=== PATIENT | female | born 1980 | race Caucasian/White ===

== ENCOUNTER 2016-09-17 18:59 | Emergency (ER) | payer OTHER ==
[~2016-09-17 18:59] MED LIST: METH750T2 PO; PRED20 PO; TRAM50 PO
[2016-09-17 19:02] VITALS: BP 178/78; PULSE 89; RESP 14; TEMP 98; O2SAT 98
--- NOTE | 2016-09-17 19:48 | PD ---
HPI Chief Complaint: Exposure to Blood/Body Fluids Time Seen by Provider: 19:20 Travel History International Travel<30 days: No Contact w/Intl Traveler<30days: No Traveled to known affect area: No History of Present Illness HPI 36-year-old female presents for evaluation after occupational exposure. 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 She was pulling the guidewire out of the source patient's recently placed dobhoff tube when the guidewire cut her on her right index finger at the DIP joint. There was some bleeding and it went through her gloves. She immediately washed the wound. She now presents for evaluation. Her last tetanus vaccination was approximately 3 years ago. She is up-to-date on her hepatitis B series. She was concerned because the source patient has tested positive for HIV. He was negative for hepatitis viral testing according to the patient. She has no other complaints. PFSH Past Medical History Diminished Hearing: No ?: Not LMP: 2 WKS AGO Menopausal: No : 2 Para: 1 Miscarriage: 1 Past Surgical History Section: Yes (07/18/13) Social History Alcohol Use: Yes Tobacco Use: No Substance Use: No Allergies-Medications (Allergen,Severity, Reaction): Coded Allergies: Amoxicillin (Verified Allergy, Mild, 11/07/13) Doxycycline (Verified Allergy, Mild, Hives, 11/07/13) Erythromycin (Verified Allergy, Mild, 11/07/13) Zithromax (Verified Allergy, Mild, Hives, 11/07/13) Reported Meds & Prescriptions Reported Meds & Active Scripts Active Zofran (Ondansetron HCl) 4 Mg Tab 4 Mg PO Q6HR PRN Kaletra (Lopinavir/Ritonavir) 200-50 Mg Tab 2 Tab PO Q12HR Fill this prescription for a 23 day supply of Kaletra ONLY if advised to do so by either Employee Health OR the Emergency Department. Zidovudine 100 Mg Cap 300 Mg PO Q12HR Lamivudine 150 Mg Tab 150 Mg PO BID Kaletra (Lopinavir/Ritonavir) 200-50 Mg Tab 2 Tab PO Q12HR Fill this 5 day prescription first & begin taking Kaletra 12 hours after the first dose received in the Emergency Department as prescribed. Zidovudine 100 Mg Cap 300 Mg PO Q12HR Lamivudine 150 Mg Tab 150 Mg PO BID Reported Omeprazole 20 Mg Tab 20 Mg PO DAILY Review of Systems General / Constitutional: Positive: Other (puncture wound exposure) Skin: Positive Other (puncture wound, bleeding, exposure) Physical Exam Narrative GENERAL: Well-developed well-nourished female in no acute distress SKIN: Warm and dry. Tiny nonbleeding puncture wound noted at the DIP joint of the right index finger. CARDIOVASCULAR: Regular rate and rhythm. No murmur appreciated. RESPIRATORY: No accessory muscle use. Clear to auscultation. Breath sounds equal bilaterally. Data Data Last Documented VS Vital Signs Date Time Temp Pulse Resp B/P Pulse Ox O2 Delivery O2 Flow Rate FiO2 09/17/16 20:03 16 09/17/16 19:02 98.0 89 178/78 98 Room Air Orders Complete Blood Count With Diff (09/17/16 19:50) Comprehensive Metabolic Panel (09/17/16 19:50) Amylase (09/17/16 19:50) Beta Hcg (Quant/Titer) (09/17/16 19:50) Lamivudine (Epivir) (09/17/16 20:15) Zidovudine (Retrovir) (09/17/16 20:15) Lopinavir-Ritonavir 200-50 Mg (Kaletra 2 (09/17/16 20:15) Ondansetron Odt (Zofran Odt) (09/17/16 20:15) Labs Laboratory Tests Test 09/17/16 19:45 White Blood Count 13.8 TH/MM3 Red Blood Count 4.24 MIL/MM3 Hemoglobin 13.6 GM/DL Hematocrit 38.7 % Mean Corpuscular Volume 91.2 FL Mean Corpuscular Hemoglobin 32.0 PG Mean Corpuscular Hemoglobin 35.1 % Concent Red Cell Distribution Width 12.9 % Platelet Count 279 TH/MM3 Mean Platelet Volume 7.5 FL Neutrophils (%) (Auto) 63.0 % Lymphocytes (%) (Auto) 29.5 % Monocytes (%) (Auto) 6.3 % Eosinophils (%) (Auto) 1.0 % Basophils (%) (Auto) 0.2 % Neutrophils # (Auto) 8.7 TH/MM3 Lymphocytes # (Auto) 4.1 TH/MM3 Monocytes # (Auto) 0.9 TH/MM3 Eosinophils # (Auto) 0.1 TH/MM3 Basophils # (Auto) 0.0 TH/MM3 CBC Comment DIFF FINAL Differential Comment Sodium Level 136 MEQ/L Potassium Level 4.2 MEQ/L Chloride Level 104 MEQ/L Carbon Dioxide Level 26.8 MEQ/L Anion Gap 5 MEQ/L Blood Urea Nitrogen 14 MG/DL Creatinine 0.90 MG/DL Estimat Glomerular Filtration 72 ML/MIN Rate Random Glucose 83 MG/DL Calcium Level 8.9 MG/DL Total Bilirubin 0.4 MG/DL Aspartate Amino Transf 17 U/L (AST/SGOT) Alanine Aminotransferase 34 U/L (ALT/SGPT) Alkaline Phosphatase 74 U/L Total Protein 7.6 GM/DL Albumin 3.9 GM/DL Amylase Level 31 U/L Human Chorionic Gonadotropin, LESS THAN 1 Quant MIU/ML MDM Medical Decision Making Medical Screen Exam Complete: Yes Emergency Medical Condition: Yes Medical Record Reviewed: Yes Differential Diagnosis Puncture wound, abrasion, laceration, HIV exposure Narrative Course 36-year-old female who received a puncture wound from the guidewire of a dobhoff tube in the patient who is known to be HIV positive presents for evaluation. Although it was a guidewire and therefore likely had minimal exposure to the source patient's bodily fluids, given that HIV positive nature of the source patient is recommended that the patient receive postexposure HIV prophylaxis. I did discuss with Dr. De La Rosa who agrees. Per our occupational exposure protocol: Blood-borne pathogen policy, the patient is to be referred to Dr. Darien Juarez for management this exposure. Therefore the patient will be given the contact information for Dr. Juarez as well as [facility] and [facility]. The patient was given the first dose of the 3 medication post exposure prophylaxis here. She being discharged with a total of 7 prescriptions. One prescription for Zofran, 3 prescriptions for the first 5 days of the antiretroviral therapy and 3 additional prescriptions for the additional 23 days for a total of 28 days of therapy. We discussed some of the most common side effects of the antiretroviral medication and she does consent to receiving postexposure prophylaxis. Diagnosis Primary Impression: Puncture wound Additional Impression: HIV exposure Referrals: Darien Juarez MD [facility] call for appointment Additional Instructions: Follow-up with [facility], call tomorrow. Follow-up with Dr. Juarez. Ellyfremory for nausea. Take the medication as prescribed. There are 3 prescriptions for the first 5 days of therapy, take these first and then begin the additional 23 days of therapy after the first 5 days have been completed. Med/Other Pt SpecificInfo: Prescription(s) given Scripts Ondansetron (Zofran)4 Mg Tab4 Mg PO Q6HR PRN (NAUSEA OR VOMITING) #30 TAB Ref 0 Prov:Lela De La Rosa DO 09/17/16 Lopinavir-Ritonavir (Kaletra)200-50 Mg Tab2 Tab PO Q12HR #92 TAB Ref 0 Fill this prescription for a 23 day supply of Kaletra ONLY if advised to do so by either Employee Health OR the Emergency Department. Prov:Lela De La Rosa DO 09/17/16 Zidovudine 100 Mg [id number] Mg PO Q12HR #138 CAP Ref 0 Prov:Lela De La Rosa DO 09/17/16 Lamivudine 150 Mg [id number] Mg PO BID #46 TAB Ref 0 Prov:Lela De La Rosa DO 09/17/16 Lopinavir-Ritonavir (Kaletra)200-50 Mg Tab2 Tab PO Q12HR #18 TAB Ref 0 Fill this 5 day prescription first & begin taking Kaletra 12 hours after the first dose received in the Emergency Department as prescribed. Prov:Lela De La Rosa DO 09/17/16 Zidovudine 100 Mg [id number] Mg PO Q12HR #29 CAP Ref 0 Prov:Lela De La Rosa DO 09/17/16 Lamivudine 150 Mg [id number] Mg PO BID #9 TAB Ref 0 Prov:Lela De La Rosa DO 09/17/16 Disposition: 01 DISCHARGE HOME Condition: Stable Nakul Owens Sep 17, 2016 19:48
[2016-09-17] MEDS ORDERED: OMEP20TA PO (19:55)
[2016-09-17] MEDS ORDERED: KALETRA200 PO (20:00)
[2016-09-17] MEDS ORDERED: ZIDO100C4 PO (20:00)
[2016-09-17] MEDS ORDERED: LAMI1TAB7 PO (20:00)
[2016-09-17] MEDS ORDERED: ONDANSETRON ODT 4 MG TAB PO ONE (20:15)
[2016-09-17] MEDS ORDERED: LOPINAVIR/RITONAVIR 200 MG/50 MG TAB PO ONE (20:15)
[2016-09-17] MEDS ORDERED: ZIDOVUDINE 100 MG CAP PO ONE (20:15)
[2016-09-17 20:21] LABS: AUTOMATED NEUTROPHIL # 8.7 TH/MM3 (1.8-7.7); BASOPHIL % 0.2 % (0.0-2.0); EOSINOPHIL # 0.1 TH/MM3 (0-0.4); HEMATOCRIT 38.7 % (35.0-46.0); HEMO FLAGS DIFF FINAL; LYMPH % 29.5 % (9.0-44.0); LYMPHOCYTE # 4.1 TH/MM3 (1.0-4.8); MEAN CELL VOLUME 91.2 FL (80.0-100.0); MEAN CORPUSCULAR HGB CONC 35.1 % (32.0-36.0); MONO % 6.3 % (0.0-8.0); PLATELET COUNT 279 TH/MM3 (150-450); RED BLOOD COUNT 4.24 MIL/MM3 (4.00-5.30); RED CELL DISTRIBUTION WIDTH 12.9 % (11.6-17.2); WHITE BLOOD COUNT 13.8 TH/MM3 (4.0-11.0)
[2016-09-17 20:35] LABS: AMYLASE 31 U/L (25-115); ANION GAP 5 MEQ/L (5-15); AST (GOT) 17 U/L (15-37); BICARBONATE 26.8 MEQ/L (21.0-32.0); BLOOD UREA NITROGEN 14 MG/DL (7-18); CHLORIDE 104 MEQ/L (98-107); GLOMERULAR FILTRATION RATE 72 ML/MIN (>89); POTASSIUM 4.2 MEQ/L (3.5-5.1); SODIUM (NA) 136 MEQ/L (136-145)
[2016-09-17 20:40] LABS: ALKALINE PHOSPHATASE 74 U/L (45-117); ALT (GPT) 34 U/L (10-53); BETA HCG QUANT LESS THAN 1 MIU/ML (0-5); TOTAL BILIRUBIN ADULT 0.4 MG/DL (0.2-1.0)
[2016-09-17] MEDS ORDERED: ZOFR4TAB PO (20:44)
[2016-09-17 21:05] VITALS: BP 141/63; TEMP 98.2
== END 2016-09-17 21:07 | disposition home or self-care (01) ==
LOC: NEPB 18:59
DX: S61.230A Puncture wound without foreign body of right index finger without damage to nail, initial encounter (principal); W45.8XXA Other foreign body or object entering through skin, initial encounter; Y93.F9 Activity, other caregiving; Y92.239 Unspecified place in hospital as the place of occurrence of the external cause; Y99.0 Civilian activity done for income or pay; Z20.6 Contact with and (suspected) exposure to human immunodeficiency virus [HIV]
CPT/HCPCS: 80053; 82150; 84702; 85025; 99283

== ENCOUNTER → 2016-09-23 | Outpatient (CLI) | payer OTHER ==
[~2016-09-23] MED LIST changes: +KALETRA200 PO; +LAMI1TAB7 PO; -METH750T2 PO; +OMEP20TA PO; -PRED20 PO; -TRAM50 PO; +ZIDO100C4 PO; +ZOFR4TAB PO
[2016-09-25 03:54] LABS: HCV RNA PCR IU/ML LESS THAN 15 IU/mL (()); HCV RNA PCR LOGIU/ML LESS THAN 1.18 (())
[2016-09-25 09:50] LABS: HIV RNA COPIES LESS THAN 20.0 (()); HIV RNA LOG COPIES LESS THAN 1.30 (())
== END ==
LOC: CLAB 11:26
PROVIDERS: ATTEND Specialist
DX: Z20.6 Contact with and (suspected) exposure to human immunodeficiency virus [HIV] (principal); S61.210A Laceration without foreign body of right index finger without damage to nail, initial encounter; W27.8XXA Contact with other nonpowered hand tool, initial encounter; Y92.69 Other specified industrial and construction area as the place of occurrence of the external cause
CPT/HCPCS: 36415; 86592; 87522; 87536

== ENCOUNTER → 2016-10-06 | Outpatient (CLI) | payer OTHER ==
[2016-10-06 10:46] LABS: HEMATOCRIT 39.1 % (35.0-46.0); MEAN CELL VOLUME 94.9 FL (80.0-100.0); MEAN CORPUSCULAR HEMOGLOBIN 32.7 PG (27.0-34.0); MEAN CORPUSCULAR HGB CONC 34.5 % (32.0-36.0); PLATELET COUNT 287 TH/MM3 (150-450); RED BLOOD COUNT 4.12 MIL/MM3 (4.00-5.30); RED CELL DISTRIBUTION WIDTH 13.7 % (11.6-17.2); REVIEW FLAG FINAL; WHITE BLOOD COUNT 10.1 TH/MM3 (4.0-11.0)
[2016-10-06 11:13] LABS: ALKALINE PHOSPHATASE 78 U/L (45-117); ALT (GPT) 43 U/L (10-53); ANION GAP 7 MEQ/L (5-15); AST (GOT) 13 U/L (15-37); BICARBONATE 24.6 MEQ/L (21.0-32.0); BLOOD UREA NITROGEN 14 MG/DL (7-18); CHLORIDE 106 MEQ/L (98-107); GLOMERULAR FILTRATION RATE 76 ML/MIN (>89); GLUCOSE,FASTING 100 MG/DL (74-99); SODIUM (NA) 138 MEQ/L (136-145); TOTAL BILIRUBIN ADULT 0.2 MG/DL (0.2-1.0)
== END ==
LOC: CLAB 10:16
PROVIDERS: ATTEND Specialist
DX: Z20.6 Contact with and (suspected) exposure to human immunodeficiency virus [HIV] (principal)
CPT/HCPCS: 36415; 80053; 85027

== ENCOUNTER → 2016-10-24 | Outpatient (CLI) | payer OTHER ==
[2016-10-24 11:31] LABS: HEMATOCRIT 38.4 % (35.0-46.0); MEAN CELL VOLUME 96.3 FL (80.0-100.0); MEAN CORPUSCULAR HEMOGLOBIN 33.8 PG (27.0-34.0); MEAN CORPUSCULAR HGB CONC 35.1 % (32.0-36.0); PLATELET COUNT 262 TH/MM3 (150-450); RED BLOOD COUNT 3.99 MIL/MM3 (4.00-5.30); RED CELL DISTRIBUTION WIDTH 17.1 % (11.6-17.2); REVIEW FLAG FINAL
[2016-10-24 12:38] LABS: ALT (GPT) 46 U/L (10-53); ANION GAP 8 MEQ/L (5-15); AST (GOT) 17 U/L (15-37); BICARBONATE 26.6 MEQ/L (21.0-32.0); BLOOD UREA NITROGEN 14 MG/DL (7-18); CHLORIDE 105 MEQ/L (98-107); GLOMERULAR FILTRATION RATE 81 ML/MIN (>89); GLUCOSE,FASTING 82 MG/DL (74-99); POTASSIUM 4.2 MEQ/L (3.5-5.1); SODIUM (NA) 140 MEQ/L (136-145)
[2016-10-24 12:41] LABS: ALKALINE PHOSPHATASE 78 U/L (45-117); TOTAL BILIRUBIN ADULT 0.4 MG/DL (0.2-1.0)
== END ==
LOC: CLAB 10:20
PROVIDERS: ATTEND Specialist
DX: T14.8 Other injury of unspecified body region (principal); W46.1XXD Contact with contaminated hypodermic needle, subsequent encounter
CPT/HCPCS: 36415; 80053; 85027; 86703; 86803